=== PATIENT | female | born 1980 | race Caucasian/White ===

== ENCOUNTER 2016-07-20 11:17 | Emergency (ER) | payer MEDICARE, OTHER ==
[2016-07-20 10:39] LABS: BASOPHILS 0.6 %; BASOPHILS ABSOLUTE 0.05 10/3/uL (0.0-0.16); EOSINOPHILS 1.9 %; EOSINOPHILS ABSOLUTE 0.16 10/3/uL (0.0-0.53); ER CBC TAT 0 Hrs 08 Mins; HEMOGLOBIN 13.9 g/dL (12.0-16.0); IMMATURE GRANULOCYTES 0.4 %; IMMATURE GRANULOCYTES ABSOLUTE 0.03 10/3/uL (0.0-0.11); LYMPHOCYTES 24.6 %; LYMPHOCYTES ABSOLUTE 2.07 10/3/uL (0.67-4.30); MANUAL DIFF NO %; MEAN CORPUS HGB CONC 33.9 g/dL (32.0-36.0); MEAN CORPUSCULAR HEMOGLOB 30.5 pg (26.0-34.0); MEAN CORPUSCULAR VOLUME 89.9 fL (80-100); MEAN PLATELET VOLUME 11.4 fL (9.2-13.0); MONOCYTES 5.8 %; MONOCYTES ABSOLUTE 0.49 10/3/uL (0.21-1.20); NEUTROPHILS 66.7 %; PLATELET COUNT 178 10/3/uL (150-400); RBC DISTRIBUTION WIDTH 13.4 % (12.0-16.0); RED CELL COUNT 4.56 10/6/uL (4.0-5.6); WHITE BLOOD CELLS 8.4 10/3/uL (4.5-10.5)
[2016-07-20 10:44] LABS: PARTIAL THROMBO TIME 27.7 SEC (22.5-37.2)
[2016-07-20 10:49] LABS: D-DIMER QUANTITATIVE < 0.27 ug/mLFEU (< 0.50)
[2016-07-20 10:55] LABS: BUN (BLOOD UREA NITROGEN) 7 MG/DL (6-23); CALCIUM, SERUM 8.2 MG/DL (8.5-10.4); CHEST PAIN PROFILE TAT 0 Hrs 24 Mins; CHLORIDE, SERUM 111 MMOL/L (96-112); CO2 (CARBON DIOXIDE) 25 MMOL/L (24-34); CREATININE 0.62 MG/DL (0.55-1.02); GFR AFRICAN AMERICAN 134 ML/MIN (>=60); GFR NON AFRICAN AMERICAN 115 ML/MIN (>=60); GLUCOSE, SERUM 90 MG/DL (60-99); SODIUM, SERUM 142 MMOL/L (135-148); TROPONIN I <0.02 NG/ML (<0.05)
== END 2016-07-20 12:31 | disposition home or self-care (01) ==
LOC: ER 11:17
PROVIDERS: Nurse Practitioner Family
DX: R09.1 Pleurisy (principal); R07.89 Other chest pain; J45.909 Unspecified asthma, uncomplicated; F32.9 Major depressive disorder, single episode, unspecified; F20.9 Schizophrenia, unspecified; F17.200 Nicotine dependence, unspecified, uncomplicated
CPT/HCPCS: 71010; 80048; 83690; 83735; 83880; 84484; 85025; 85379; 85610; 85730; 93005; 96374; 99285; A9270-GY; J1885